=== PATIENT | female | born 1975 | race Caucasian/White ===

== ENCOUNTER 2016-07-15 18:34 | Emergency (ER) ==
[2016-07-15] MEDS ORDERED: DECADRON IM ONE (18:48)
--- NOTE | 2016-07-15 18:49 | PROVIDER DOCUMENTATION ---
HPI-EENT General - General Stated Complaint: SINUS SX Time Seen by Provider: 07/15/16 18:36 Source: patient Allergies/Adverse Reactions: Patient Allergies Allergy/AdvReac Type Severity Reaction Status Date / Time No Known Allergies Allergy Verified 06/24/16 11:45 Home Medications: Home Medication List Medication Instructions Recorded Confirmed Last Taken Type No Home Medications 07/15/16 07/15/16 Unknown History - History of Present Illness-EENT General Nature of Presenting Problem: 40 y/o WF c/o maxillary sinus pain x 2 days, with purulent drainage from the nares and headache. Having cough, nonproductive, needs work excuse. Denies pre- arrival treatments. EENT Location: reports: nose Quality of Pain: reports: aching Severity: reports: mild Onset/Duration: reports: 2 days ago Timing: reports: still present Prearrival Treatment: Initiated no prearrival treatment Associated Symptoms: reports: cough. denies: ear drainage, facial pain/swelling , fever, malaise Review of Systems - Adult - REVIEW OF SYSTEMS - ADULT Constitutional: reports: no symptoms reported. denies: chills, fever, fatique Eyes: reports: no symptoms reported. denies: blurred vision, double vision, eye pain Ears, Nose, Mouth & Throat: reports: see HPI, sinus problem. denies: ear pain, throat pain Cardiovascular: reports: no symptoms reported. denies: chest pain Respiratory: reports: see HPI, cough. denies: shortness of breath, wheezing Gastrointestinal: reports: no symptoms reported. denies: abdominal pain, diarrhea, nausea, vomiting Genitourinary: reports: no symptoms reported. denies: dysuria, discharge, frequency Musculoskeletal: reports: no symptoms reported. denies: muscle aches Integumentary: reports: no symptoms reported. denies: rash Neurological: reports: see HPI, headache/migraines. denies: ataxia, dizziness/ vertigo Psychiatric: reports: no symptoms reported Endocrine: reports: no symptoms reported Hematologic/Lymphatic: reports: no symptoms reported Allergic/Immunologic: reports: no symptoms reported All Other Systems: Reviewed and Negative Past History - Adult - PAST MEDICAL HISTORY-ADULT Review of Records: reports: Old Records Reviewed, Nursing Assessment Review, Medications Reviewed, Social history reviewed & non-contributory. Major Childhood Illnesses: reports: denies history Cardiovascular: reports: denies history Respiratory: reports: denies history Gastrointestinal: reports: denies history Obstetrical/Gynecological: reports: denies history Genitourinary: reports: denies history Musculoskeletal: reports: denies history Neurological: reports: denies history Endocrine/Immune: reports: denies history Other Conditions: reports: denies history - FAMILY HISTORY Family History: reviewed, not pertinent Physical Exam- EENT - Physical Exam EENT Initial Vital Signs Reviewed: Yes General Appearance: appears well, alert, no apparent distress Eye Exam: bilateral eye: normal inspection, PERRL, EOMI Ear Exam: bilateral ear: auricle normal, canal normal, TM normal Nasal Exam: sinus tenderness (maxillary) Throat Exam: normal mouth inspection, pharynx normal Neck: non-tender, full range of motion, supple, normal inspection Respiratory: chest non-tender, lungs clear, normal breath sounds, no pleuratic chest pain, no respiratory distress, no accessory muscle use. negative: respiratory distress, decreased breath sounds, accessory muscle use, crackles, rales, rhonchi, wheezing Cardiovascular: normal peripheral pulses, regular rate, rhythm Extremity: normal gait Integumentary: normal color, normal turgor, warm/dry Neurologic: grossly normal, no motor/sensory deficits Psych/Mental Status: normal mood/affect, normal thought content, normal thought process, oriented x 3 Progress - PLAN OF CARE/RESULTS Progress/Plan/Lab Results: Vital Signs Temp Pulse Resp BP Pulse Ox 07/15/16 18:50 98 F 93 H 18 119/64 98 No Known Allergies Allergy (Verified 06/24/16 11:45) No Home Medications 07/15/16 Orders Category Date Time Status Dexamethasone [Decadron] Med 07/15/16 18:48 Discontinued 4 mg IM NOW ONE Departure - Departure Time of Disposition Order: 18:48 DIAGNOSIS: Acute maxillary sinusitis Qualifiers: Recurrence: recurrent Qualified Code(s): J01.01 - Acute recurrent maxillary sinusitis Disposition: HOME 01 Certified Medical Emergency: Emergent Condition: Stable Additional Instructions: ED Follow Up Instructions: You have been treated by a care provider in the Emergency Department. These instructions are being provided to you so you can have an understanding of how to care for yourself upon discharge. Upon discharge from the Emergency Department, you are responsible for making arrangements for follow-up care by a physician of your choice. Take all prescribed medications as directed. Return to the Emergency Department immediately for any new or worsening symptoms. You may call the Physician Referral phone number at [phone] to obtain a list of Physicians who are taking new patients. Referrals: Pawel Madison MD [STAFF PHYSICIAN] - Forms: Return to School/Parent Work Instructions: Albuterol inhalation aerosol, Sinusitis, [id number], Fluticasone nasal spray, Azithromycin tablets Attestation - Physician/ SANDY Attestation Patient care was provided by Advanced Practice Provider:: Yes Advanced Practice Provider:: Maureen Dutta Advanced Practice Provider documentation review:: The Mid-level provider documentation, treatment plan and medical decision making was reviewed by the physician who agrees with all treatment and medical decision making by the P.
[2016-07-15 18:53] VITALS: BP 119/64
== END 2016-07-15 19:18 | disposition home or self-care (01) ==
LOC: P.ED 18:34
DX: J01.01 Acute recurrent maxillary sinusitis (principal); J34.89 Other specified disorders of nose and nasal sinuses; R51 Headache; R05 Cough
CPT/HCPCS: 96372; J1100

== ENCOUNTER 2016-08-06 21:36 | Emergency (ER) ==
--- NOTE | 2016-08-06 22:29 | PROVIDER DOCUMENTATION ---
HPI-General Adult - General Chief Complaint: Toothache Stated Complaint: TOOTHACHE PAIN Time Seen by Provider: 08/06/16 22:03 Source: patient Allergies/Adverse Reactions: Patient Allergies Allergy/AdvReac Type Severity Reaction Status Date / Time No Known Allergies Allergy Verified 06/24/16 11:45 Home Medications: Home Medication List Medication Instructions Recorded Confirmed Last Taken Type Clindamycin HCl 300 mg PO Q4HR #40 capsule 08/06/16 Unknown Rx Ketorolac [Toradol] 10 mg PO Q6H PRN PRN #20 tablet 08/06/16 Unknown Rx - History of Present Illness -Gen Adult Nature of Presenting Problems: 40 year old female presents to the ER with complaint of toothache. Pt states she has a hx of tooth pain with this tooth and could not go to work today due to this problem. Pt states she came to the ER for a work excuse. Location of Pain/Injury: reports: other (tooth) Review of Systems - Adult - REVIEW OF SYSTEMS - ADULT Constitutional: denies: chills, fever Eyes: reports: no symptoms reported Ears, Nose, Mouth & Throat: reports: mouth/dental pain Cardiovascular: reports: no symptoms reported Respiratory: reports: no symptoms reported Gastrointestinal: reports: no symptoms reported Genitourinary: reports: no symptoms reported Musculoskeletal: reports: no symptoms reported Integumentary: reports: no symptoms reported Neurological: reports: no symptoms reported Psychiatric: reports: no symptoms reported Endocrine: reports: no symptoms reported Hematologic/Lymphatic: reports: no symptoms reported Allergic/Immunologic: reports: no symptoms reported All Other Systems: Reviewed and Negative Past History - Adult - PAST MEDICAL HISTORY-ADULT Review of Records: reports: Nursing Assessment Review, Medications Reviewed Major Childhood Illnesses: reports: denies history Cardiovascular: reports: denies history Respiratory: reports: denies history Gastrointestinal: reports: denies history Obstetrical/Gynecological: reports: denies history Genitourinary: reports: denies history Musculoskeletal: reports: denies history Neurological: reports: denies history Endocrine/Immune: reports: denies history Other Conditions: reports: denies history - IMMUNIZATION STATUS Childhood Immunizations: See Nurse Assessment Flu Vaccine: See Nurse Assessment - FAMILY HISTORY Family History: reviewed, not pertinent Physical Exam-General - CONSTITUTIONAL General Appearance: alert, no apparent distress - EYES Eyes: PERRL/EOMI, pink conjunctivae - HEAD, EARS, NOSE, MOUTH & THROAT HENMT: normocephalic/atraumatic, dental decay - NECK Neck: non-tender, supple - RESPIRATORY Respiratory: chest non-tender, lungs clear - CARDIOVASCULAR Cardiovascular: normal peripheral pulses, regular rate, rhythm - MUSCULOSKELETAL Back Exam: no CVA tenderness, no vertebral tenderness Extremity: non-tender, normal gait - SKIN Integumentary: normal color, warm/dry - NEUROLOGIC Neurologic: grossly normal, no motor/sensory deficits - PSYCHIATRIC Psych/Mental Status: normal mood/affect, normal thought content, normal thought process, oriented x 3 Departure - Departure Time of Disposition Order: 22:28 DIAGNOSIS: Toothache Disposition: HOME 01 Certified Medical Emergency: Emergent Condition: Stable Prescriptions: Clindamycin HCl 300 mg PO Q4HR #40 capsule Ketorolac [Toradol] 10 mg PO Q6H PRN PRN #20 tablet PRN Reason: Pain Referrals: None,PCP [Primary Care Provider] - Attestation - Scribe Verification/Attestation Scribe:: Hannah Gustafson Acting as Scribe for:: Jaspreet Oneill Scribe documention review:: This chart was documented by a scribe and accurately reflects the service the provider performed and the decisions made by the provider.
[2016-08-06] MEDS ORDERED: TORADOL PO ONE (22:40)
[2016-08-06] MEDS ORDERED: TORADOL ONE (22:41)
[2016-08-06 22:46] VITALS: BP 105/65
== END 2016-08-06 22:45 | disposition home or self-care (01) ==
LOC: P.ED 21:36
DX: K08.89 Other specified disorders of teeth and supporting structures (principal); K02.9 Dental caries, unspecified
CPT/HCPCS: 99282